=== PATIENT | male | born 1995 | race African-American/Black ===

== ENCOUNTER 2025-03-19 15:31 | Emergency (ER) | payer OTHER ==
[~2025-03-19 15:31] MED LIST: Iopamidol 300 61% 100 ML VIAL FS ONE
[2025-03-19] MEDS ORDERED: Mag-Al 1200 mg/1200 mg/30 ML UDCUP ONE (16:46)
[2025-03-19] MEDS ORDERED: Ondansetron PF 4 MG/2 ML Vial ONE (16:46)
[2025-03-19] MEDS ORDERED: Lidocaine Viscous Sol 2% 15 ml UD Cup ONE (16:46)
[2025-03-19 16:48] LABS: #Basophils Less than 0.03 10x3/uL (0.0-0.2); #Eosinophils 0.50 10x3/uL (0.0-0.5); #Monocytes 0.49 10x3/uL (0.0-1.1); #Neutrophils 4.45 10x3/uL (1.5-8.4); %Basophils 0.3 % (0.0-2.0); %Eosinophils 7.2 % (0.0-6.0); %Lymphocytes 20.4 % (18.0-47.0); %Monocytes 7.0 % (0.0-10.0); %Neutrophils 63.8 % (40.0-75.0); Hematocrit 34.8 % (38.8-50.0); Hemoglobin 11.2 g/dL (13.5-17.5); Mean Corpuscular Hemoglobin 27.1 pg (27.0-33.0); Mean Corpuscular Volume 84.1 fL (81.2-95.1); Platelet Count 247 10x3/uL (150-450); Red Blood Cell (RBC) Count 4.14 10x6/uL (4.32-5.72); White Blood Cell (WBC) Count 6.97 10x3/uL (3.5-10.5)
[2025-03-19 17:02] LABS: ALT (SGPT) 35 U/L (Less than 45); AST (SGOT) 24 U/L (11-34); Albumin 4.1 g/dL (3.1-4.5); Alkaline Phosphatase 59 U/L (40-110); Anion Gap 14 mmol/L (10-20); BUN (Urea Nitrogen) 14 mg/dL (8.9-20.6); Bilirubin, Total 0.2 mg/dL (0.3-1.2); Calc. Creatinine Clearance 0 mL/min (70-130); Calcium 8.7 mg/dL (7.8-10.44); Carbon Dioxide 21 mmol/L (22-29); Chloride 110 mmol/L (98-107); Globulin 2.7 g/dL (2.4-3.5); Glucose 89 mg/dL (70-105); Lipase 16 U/L (8-78); Potassium 4.7 mmol/L (3.5-5.1); Sodium 140 mmol/L (136-145)
[2025-03-19 18:23] LABS: Glucose, Urine (Dipstick) Normal (Negative); Leukocyte Negative (Negative); Protein, Urine (Dipstick) Negative (Neg-Trace); Specific Gravity, Urine 1.010 (1.005-1.030)
[2025-03-19 18:30] LABS: CAUTI Indications for Culture Dysuria,urgency,freq; RBC/HPF None Seen HPF (0-3); WBC/HPF None Seen HPF (0-3)
[2025-03-19 18:31] LABS: Urine Culture Reflex No No
== END 2025-03-19 18:41 | disposition home or self-care (01) ==
LOC: CSHERS 15:31
DX: I88.0 Nonspecific mesenteric lymphadenitis (principal); I10 Essential (primary) hypertension; F17.290 Nicotine dependence, other tobacco product, uncomplicated
CPT/HCPCS: 74177; 80053; 81001; 83690; 85025; 96361; 96374; 96375; J2405